=== PATIENT | male | born 1975 | race African-American/Black ===

== ENCOUNTER 2017-05-15 11:13 | Emergency (ER) | payer OTHER ==
[~2017-05-15] VITALS: Ht 175.3 cm; Wt 80.0 kg
[2017-05-15 15:09] VITALS: BP 118/80
== END 2017-05-15 15:11 | disposition home or self-care (01) ==
LOC: ER 11:13
DX: Z04.8 Encounter for examination and observation for other specified reasons (principal)
CPT/HCPCS: 99283